=== PATIENT | male | born 2000 | race Caucasian/White ===

== ENCOUNTER 2023-08-03 14:32 | Emergency (ER) | payer SELFPAY ==
[~2023-08-03] VITALS: Ht 180.3 cm; Wt 91.0 kg
[2023-08-03 14:50] VITALS: BP 131/69; PULSE 74; RESP 15; TEMP 98.6; O2SAT 99
[2023-08-03] MEDS ORDERED: ACETAMINOPHEN 325MG TABLET PO ONE (17:30)
== END 2023-08-03 18:53 | disposition left against medical advice (07) ==
LOC: ER 15:11
DX: R07.89 Other chest pain (principal); Z53.21 Procedure and treatment not carried out due to patient leaving prior to being seen by health care provider
CPT/HCPCS: 93005; 99281